=== PATIENT | female | born 1960 | race Caucasian/White ===

== ENCOUNTER 2017-05-19 10:06 | Emergency (ER) | payer OTHER ==
[~2017-05-19] VITALS: Ht 175.3 cm; Wt 133.4 kg
[~2017-05-19 10:06] MED LIST: CIPRO500 MG PO; NORCO 5-325 TA1 EACH PO
[2017-05-19] MEDS ORDERED: ROBITUSSIN100 MG/53 PO (10:27)
[2017-05-19] MEDS ORDERED: ALLOPURINOL 10100 M1 PO (10:28)
[2017-05-19] MEDS ORDERED: CHERATUSSIN AC118 ML PO ×2 (11:05→11:10)
[2017-05-19] MEDS ORDERED: TESSALON PERLE100 MG PO (11:05)
[2017-05-19] MEDS ORDERED: PROAIR HFA8.5 GM INH (11:06)
[2017-05-19] MEDS ORDERED: IBUPROFEN 800800 M1 PO (11:06)
[2017-05-19] MEDS ORDERED: KEFLEX500 M1 PO (11:16)
[2017-05-19 11:25] VITALS: BP 133/84
== END 2017-05-19 11:36 | disposition home or self-care (01) ==
LOC: M.ERS 10:06
DX: J11.1 Influenza due to unidentified influenza virus with other respiratory manifestations (principal); H66.93 Otitis media, unspecified, bilateral; M10.9 Gout, unspecified; Z90.49 Acquired absence of other specified parts of digestive tract; Z98.890 Other specified postprocedural states; Z91.012 Allergy to eggs; Z91.011 Allergy to milk products

== ENCOUNTER → 2017-05-23 | Outpatient (CLI) | payer OTHER ==
[~2017-05-23] MED LIST changes: +ALLOPURINOL 10100 M1 PO; +CHERATUSSIN AC118 ML PO; +IBUPROFEN 800800 M1 PO; +KEFLEX500 M1 PO; +PROAIR HFA8.5 GM INH; +ROBITUSSIN100 MG/53 PO; +TESSALON PERLE100 MG PO
== END ==
LOC: M.RAD 11:53
DX: J11.1 Influenza due to unidentified influenza virus with other respiratory manifestations (principal); J84.10 Pulmonary fibrosis, unspecified

== ENCOUNTER → 2018-05-07 | Outpatient (CLI) | payer OTHER | LOC: M.RAD 15:18 | DX: R06.00 Dyspnea, unspecified (principal) ==